=== PATIENT | male | born 1970 | race Caucasian/White ===

== ENCOUNTER → 2022-07-19 | Outpatient (CLI) | payer OTHER ==
--- NOTE | 2022-07-19 09:34 | Diagnostic Imaging Report ---
Indication: Right elbow pain 3 views the right elbow show no fracture, dislocation or pathologic effusion. IMPRESSION: Negative right elbow. Dictated by: Dictated on workstation # [id number]
== END ==
LOC: ORTHO 08:08
PROVIDERS: ATTEND Orthopaedic Surgery
DX: M25.521 Pain in right elbow (principal)
CPT/HCPCS: 20600; 73080; G0463